=== PATIENT | male | born 1980 | race Caucasian/White ===

== ENCOUNTER 2021-10-27 20:40 | Observation (INO) | payer BC ==
[2021-10-27] MEDS ORDERED: ASPIRIN 81 MG PO STA (20:49)
[2021-10-27] MEDS ORDERED: NITROGLYCERIN OINT 1 INCH/GM PACKET TOPICAL STA (20:49)
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
--- NOTE | 2021-10-27 21:13 | XR ---
EXAMINATION TYPE: XR chest 2V DATE OF EXAM: 10/27/2021 COMPARISON: NONE HISTORY: Chest pain TECHNIQUE: 2 views FINDINGS: Heart and mediastinum are normal. Lungs are clear. Diaphragm is normal. Bony thorax appears normal. IMPRESSION: Normal chest
[2021-10-27 21:29] LABS: Basophils # (A) 0.2 k/uL (0-0.2); Basophils % (A) 2 %; Eosinophils # (A) 0.3 k/uL (0-0.7); Eosinophils % (A) 3 %; HCT 44.4 % (39.0-53.0); HGB 14.8 gm/dL (13.0-17.5); Lymphocytes # (A) 2.7 k/uL (1.0-4.8); Lymphocytes % (A) 30 %; MCHC 33.4 g/dL (31.0-37.0); MCV 86.8 fL (80.0-100.0); Mean Platelet Volume 7.3; Monocytes # (A) 0.8 k/uL (0-1.0); Monocytes % (A) 8 %; Neutrophils % (A) 54 %; Platelet Count 236 k/uL (150-450); RBC 5.12 m/uL (4.30-5.90); RDW 12.8 % (11.5-15.5); WBC 9.2 k/uL (3.8-10.6)
[2021-10-27 21:50] LABS: ALT 23 U/L (4-49); AST 29 U/L (17-59); African American GFR (CKD) >90 (>60 ml/min/1.73 sqM); Albumin 4.1 g/dL (3.5-5.0); Alkaline Phosphatase 66 U/L (38-126); Anion Gap 7 mmol/L; Blood Urea Nitrogen 23 mg/dL (9-20); Calcium 9.3 mg/dL (8.4-10.2); Carbon Dioxide 26 mmol/L (22-30); Chloride 105 mmol/L (98-107); Glucose 94 mg/dL (74-99); Magnesium 2.1 mg/dL (1.6-2.3); Non-African American GFR(CKD) >90 (>60 ml/min/1.73 sqM); Potassium 3.7 mmol/L (3.5-5.1); Sodium 138 mmol/L (137-145); Total Bilirubin 0.4 mg/dL (0.2-1.3); Total Protein 7.4 g/dL (6.3-8.2)
[2021-10-27 22:06] LABS: Partial Thromboplastin Time 24.6 sec (22.0-30.0)
[2021-10-27] MEDS ORDERED: LABETALOL 5 MG/ML VIAL MDV IVP STA (22:33)
[2021-10-27] MEDS ORDERED: NITROGLYCERIN SL TABS 0.4 MG TAB SUBLINGUAL PRN (22:34)
[2021-10-28] MEDS: NITROGLYCERIN OINT 1 INCH/GM PACKET TOPICAL SCH ×2 (00:13→06:17)
[2021-10-28] MEDS ORDERED: ATORVASTATIN 80 MG TAB PO STA (02:59)
[2021-10-28] MEDS ORDERED: lisinopriL 10 MG TAB PO STA (03:00)
--- NOTE | 2021-10-28 03:00 | P.HPIM ---
History of Present Illness H&P Date: 10/28/21 Patient is a 41-year-old male with a PMH of tobacco abuse and hypertension who presents to the emergency room with complaints of chest pain. The patient reports that he has been having intermittent left-sided chest pain for the past 6 months. He reports that last night however, the pain was worse than usual, started around 5 PM, was 6 out of 10 in intensity, radiating to the left arm, aching in nature, with associated shortness of breath, without alleviating or exacerbating features. The patient denied experiencing nausea, vomiting, diaphoresis. He reports that the pain resolved within 1-2 hours of onset. Denies experiencing fever, chills, cough, abdominal pain, diarrhea. EKG reveals sinus rhythm at 74 bpm with T-wave flattening in leads 3 and aVF. Laboratory evaluation revealed a troponin of less than 0.012. Review of systems: Pertinent positives and negatives as discussed in HPI, a complete review of systems was performed and all other systems are negative. Physical examination: General: non toxic, no distress, appears at stated age, overweight Derm: no unusual rashes/lesions no unusual ecchymoses, warm, dry Head: atraumatic, normocephalic, symmetric Eyes: EOMI, no lid lag, anicteric sclera, pupils equal round reactive to light ENT: Nose and ears atraumatic, no thrush, no pharyngeal erythema Neck: No thyromegaly, no cervical lymphadenopathy, trachea midline, supple Mouth: no lip lesion, mucus membranes moist Cardiovascular: S1S2 reg, no murmur, positive posterior tibial pulse bilateral, no edema, capillary refill less than 2 seconds Lungs: CTA bilateral, no rhonchi, no rales , no accessory muscle use Abdominal: soft, nontender to palpation, no guarding, no appreciable organomegaly, normal bowel sounds Ext: no gross muscle atrophy, muscle strength 5 out of 5 in all 4 extremities grossly, no contractures, Neuro: CN II-XI grossly intact, light touch intact all 4 extremities, finger to nose within normal limits, Psych: Alert, oriented, appropriate affect Assessment/plan Chest pain, rule out ACS -Cardiology consult -Trend troponin -Cardiac monitoring -Continue with aspirin, statin -Chronic conditions: Hypertension, tobacco abuse -Continue with home meds DVT prophylaxis -Heparin subcu The patient is admitted with an anticipated less than 2 midnight stay for evaluation of chest pain CODE STATUS: Full Code Discussed with: Patient Anticipated discharge date: in am Anticipated discharge place: Home Past Medical History Past Medical History: Hypertension History of Any Multi-Drug Resistant Organisms: None Reported Past Surgical History: No Surgical Hx Reported Past Psychological History: Anxiety Smoking Status: Current every day smoker Past Alcohol Use History: Rare Past Drug Use History: None Reported Medications and Allergies Home Medications Medication Instructions Recorded Confirmed Type Venlafaxine HCl [Effexor XR] 75 mg PO HS 10/27/21 10/27/21 History Allergies Allergy/AdvReac Type Severity Reaction Status Date / Time No Known Allergies Allergy Verified 10/27/21 21:30 Physical Exam Vitals: Vital Signs Temp Pulse Resp BP Pulse Ox 10/28/21 02:00 68 18 134/94 95 10/28/21 00:00 68 18 134/78 95 10/27/21 23:05 75 18 157/108 96 10/27/21 21:45 75 18 165/119 95 10/27/21 20:41 98.2 F 80 18 145/106 97 Intake and Output 10/27/21 10/27/21 10/28/21 14:59 22:59 06:59 Other: Weight 83.915 kg Results CBC & Chem 7: 10/27/21 21:20 10/27/21 21:20 Labs: Abnormal Lab Results - Last 24 Hours (Table) 10/27/21 Range/Units 21:20 BUN 23 H (9-20) mg/dL
[2021-10-28] MEDS ORDERED: HEPARIN SODIUM,PORCINE/PF 5,000 UNIT/0.5 ML SYRINGE SQ SCH ×2 (08:00)
[2021-10-28] MEDS ORDERED: METOPROLOL TARTRATE 25 MG TAB PO SCH (09:00)
[2021-10-28] MEDS ORDERED: ASPIRIN 325 MG TAB PO SCH (09:00)
[2021-10-28] MEDS ORDERED: lisinopriL 10 MG TAB PO SCH (09:00)
[2021-10-28 09:14] LABS: Chol/HDL Ratio 5.07 Ratio; LDL Cholesterol,Calculated 89.8 mg/dL (0.0-131.0)
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
--- NOTE | 2021-10-28 13:00 | ECHOF ---
Referral Reason:Chest pain MEASUREMENTS -------- HEIGHT: 177.8 cm WEIGHT: 83.9 kg BP: 129/72 RVIDd: 3.0 cm (< 3.3) IVSd: 1.0 cm (0.6 - 1.1) LVIDd: 5.1 cm (3.9 - 5.3) LVPWd: 1.0 cm (0.6 - 1.1) IVSs: 1.6 cm LVIDs: 3.4 cm LVPWs: 1.8 cm LA Diam: 3.4 cm (2.7 - 3.8) LAESV Index (A-L): 24.90 ml/m Ao Diam: 3.3 cm (2.0 - 3.7) AV Cusp: 2.5 cm (1.5 - 2.6) MV EXCURSION: 21.996 mm (> 18.000) MV EF SLOPE: 116 mm/s (70 - 150) EPSS: 0.7 cm MV E Murphy: 0.68 m/s MV DecT: 266 ms MV A Murphy: 0.75 m/s MV E/A Ratio: 0.91 FINDINGS -------- Sinus rhythm. This was a technically good study. The left ventricular size is normal. Left ventricular wall thickness is normal. Overall left vent ricular systolic function is normal with, an EF between 60 - 65 %. The right ventricle is normal in size. Normal LA size by volume 22+/-6 ml/m2. The right atrium is normal in size. Interatrial and interventricular septum intact. The aortic valve is trileaflet, and appears structurally normal. No aortic stenosis or regurgitation. There is trace mitral regurgitation. Trace tricuspid regurgitation present. Trace/mild (physiologic) pulmonic regurgitation. The aortic root size is normal. Normal inferior vena cava with normal inspiratory collapse consistent with estimated right atrial pre ssure of 5 mmHg. There is no pericardial effusion. CONCLUSIONS -------- 1. The left ventricular size is normal. 2. Left ventricular wall thickness is normal. 3. Overall left ventricular systolic function is normal with, an EF between 60 - 65 %. 4. There is trace mitral regurgitation. 5. Trace tricuspid regurgitation present. 6. Trace/mild (physiologic) pulmonic regurgitation. 7. There is no pericardial effusion. NUTRITION AIDE: Consuelo Parker RDCS
--- NOTE | 2021-10-28 13:39 | P.STRESS ---
- Stress Test Note Stress Test Results/Findings: Exam Performed: stress echo exercise Exam Date: 10/28/21 Reason for Exam: chest pain Height: 5 ft 10 in Weight: 83.915 kg Protocol: Wally Stage: V Duration of Exercise: 13 MIN Resting Heart Rate: 70 Resting Blood Pressure: 110/63 Maximum Achieved Heart Rate: 171 Maximum Achieved Blood Pressure: 153/69 85% PMHR: 150 100% PMHR: 177 METS: 13.5 Technologist Comment: Stress Test Results/Findings: Patient underwent exercise stress echo with a Wally protocol treadmill stress test. Patient exercised into Stage 5 for a total of 13 minutes reaching a total of 13.5 METS. Patient's maximum heart rate was 171 which represented 97% age- predicted maximum heart rate. Stress EKG portion: At baseline patient's EKG showed normal sinus rhythm, normal axis, T-wave inversion in lead 3 and maybe normal variant. At peak exercise, EKG showed O significant change from baseline. Stress echo portion: 2-D echocardiogram was performed in the parasternal long, personal short, apical 2 and apical four-chamber views at rest, peak exercise and in recovery. At baseline, echocardiogram showed left ventricular ejection fraction 55% without wall motion abnormalities. With peak exercise, echocardiogram shows improvement in left ventricular ejection fraction, increase contractility, decrease in left ventricular end systolic dimension without wall motion abnormalities consistent with a normal response to exercise. Conclusions: 1. Normal EKG and echo response to exercise without evidence of inducible ischemia. 2. Excellent exercise capacity.
[2021-10-28 14:22] VITALS: BP 123/49; PULSE 89; RESP 18; TEMP 97.4
--- NOTE | 2021-10-28 14:22 | P.DS ---
Providers Date of admission: 10/27/21 22:34 Expected date of discharge: 10/28/21 Attending physician: Cherise Shah MD Consults: Discharge Diagnosis: [] Hospital Course: [] Patient seen and examined at bedside.[] Vital signs reviewed and stable. General: Nontoxic, no distress and appears stated age. Derm: Skin warm and dry, normal coloration for ethnicity. Head: Atraumatic, normocephalic and symmetric. Eyes: EOMs intact, no lid lag, and anicteric sclera Mouth: no lip lesions, mucus membranes moist Cardiovascular: regular rate and rhythm with normal S1S2, no murmur, positive posterior tibial pulses bilaterally, and cap refill < 2 seconds. Lungs: Respirations even, regular, and unlabored on room air. Lungs CTA bilaterally, no rhonchi, no rales, no wheezing, and no accessory muscle usage. Abdominal: soft, nontender to palpation, no guarding, no appreciable organomegaly Ext: ROM intact. No gross muscle atrophy, no edema, no contractures Neuro: Speech clear, face symmetrical and CN II-XII grossly intact with no noted focal neuro deficits Psych: Alert and oriented to person, place, time, and situation. Appropriate and pleasant affect. A total of 45 minutes of time were spent preparing this complex discharge summary. Primary care physician: Stated None Hospital Course: Discharge Diagnosis: Atypical chest pain, acute coronary event ruled out. Hypertension, patient started on antihypertensive medication lisinopril 10 mg daily. Tobacco dependence, recommend cessation of tobacco use. Hospital Course: Patient is a very pleasant 41-year-old male with a past medical history of hypertension and nicotine dependence. He presented to the emergency department with a chief complaint of chest pain. Patient reported having intermittent left-sided chest pain off and on over the past 6 months but states yesterday evening this chest pain was different and was like a dull subtle aching pain in his left anterior chest that then radiated into his left arm accompanied by shortness of breath. Patient was seen and fully evaluated in the emergency department. EKG completed revealing normal sinus rhythm at 74 bpm with J-point elevation in aVL and T-wave inversion in lead III. chest x-ray completed negative for acute cardiopulmonary process. CBC, coags, and CMP were all unremarkable. D-dimer was negative at 0.19 and initial troponin also negative at less than 0.012. Patient was admitted under our services with consultation to cardiology. Troponins were trended and all negative at less than 0.0123 draws. Echocardiogram completed revealing a normal EF between 60 and 65% with no significant valvular abnormalities. Lipid profile unremarkable with the exception of low HDL of 29.00.. Patient underwent stress test revealing excellent exercise capacity with normal EKG and echo response to exercise without evidence of inducible ischemia. Cardiology recommending outpatient follow-up in their office in 2 weeks. Patient is medically stable at this time and stable for discharge home. Patient encouraged to stop smoking. He was sent home with a prescription for lisinopril 10 mg daily for treatment of hypertension and instructed to monitor blood pressures at home, document in log and bring with him to his next doctor's appointments. Patient to follow-up with PCP and cardiology as directed. Patient seen and examined at bedside. He is free from any chest pain reports full resolution just prior to arriving in the hospital. Patient currently denies any other complaints including headache, lightheadedness, dizziness, palpitations, shortness of breath, abdominal pain, nausea, vomiting, or experiencing any numbness/tingling/weakness in his extremities. Vital signs reviewed and stable. General: Nontoxic, no distress and appears stated age. Derm: Skin warm and dry, normal coloration for ethnicity. Head: Atraumatic, normocephalic and symmetric. Eyes: EOMs intact, no lid lag, and anicteric sclera Mouth: no lip lesions, mucus membranes moist Cardiovascular: regular rate and rhythm with normal S1S2, no murmur, positive posterior tibial pulses bilaterally, and cap refill < 2 seconds. Lungs: Respirations even, regular, and unlabored on room air. Lungs CTA bilaterally, no rhonchi, no rales, no wheezing, and no accessory muscle usage. Abdominal: soft, nontender to palpation, no guarding, no appreciable organomegaly Ext: ROM intact. No gross muscle atrophy, no edema, no contractures Neuro: Speech clear, face symmetrical and CN II-XII grossly intact with no noted focal neuro deficits Psych: Alert and oriented to person, place, time, and situation. Appropriate and pleasant affect. A total of 45 minutes of time were spent preparing this complex discharge summary. Albert Cruz NP rendered care for this patient independently, reviewed the f indings and plan as documented in the note above. I did not physically speak with or examine the patient on this date. Patient Condition at Discharge: Stable Plan - Discharge Summary Discharge Rx Participant: No New Discharge Prescriptions: New lisinopriL [Zestril] 10 mg PO DAILY 30 Days #30 tab Continue Venlafaxine HCl [Effexor XR] 75 mg PO HS Discharge Medication List Venlafaxine HCl [Effexor XR] 75 mg PO HS 10/27/21 [History] lisinopriL [Zestril] 10 mg PO DAILY 30 Days #30 tab 10/28/21 [Rx] Follow up Appointment(s)/Referral(s): Bruno Birmingham DO [STAFF PHYSICIAN] - 1 Week William Monroe MD [STAFF PHYSICIAN] - 1-2 Days Activity/Diet/Wound Care/Special Instructions: Activity: As tolerated. Take breaks as needed. Diet: Heart healthy and carb consistent diet. Avoid salts, or foods with hidden salts such as canned or boxed foods and frozen dinners. Extra salt makes your heart work harder and traps the fluid in your body for longer. Special Instructions: Take all of your medications as directed and remember to keep all of your d octor's appointments and follow-up as needed. Thank you for allowing us to participate in your care, it was truly a pleasure having you for our patient!!! Discharge Disposition: HOME SELF-CARE
[2021-10-28] MEDS ORDERED: ATORVASTATIN 80 MG TAB PO SCH (21:00)
== END 2021-10-28 14:41 | disposition home or self-care (01) ==
LOC: EC 20:40 → 6NMEDSUR 22:34
PROVIDERS: ADMIT Internal Medicine; ATTEND Internal Medicine
DX: R07.89 Other chest pain (principal); I10 Essential (primary) hypertension; E78.5 Hyperlipidemia, unspecified; R06.02 Shortness of breath; R20.8 Other disturbances of skin sensation; R11.0 Nausea; F41.9 Anxiety disorder, unspecified; Z79.899 Other long term (current) drug therapy; F17.210 Nicotine dependence, cigarettes, uncomplicated; Z71.6 Tobacco abuse counseling
CPT/HCPCS: 96374; 99285; 36415; 93005 ×2; 93306; 93351; 85379; 80061; 80053; 83735; 84484 ×2; 85025; 85610; 85730; 71046; G0378 ×2